=== PATIENT | female | born 2000 | race Caucasian/White ===

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

== ENCOUNTER 2020-10-18 07:25 | Emergency (ER) | payer BC ==
[~2020-10-18] VITALS: Ht 157.4 cm; Wt 45.4 kg
[2020-10-18] MEDS ORDERED: CLINDAMYCIN HC300 MG PO (10:25)
== END 2020-10-18 10:33 | disposition home or self-care (01) ==
LOC: ED 07:25
DX: K02.9 Dental caries, unspecified (principal); F41.9 Anxiety disorder, unspecified; Z88.5 Allergy status to narcotic agent; Z91.030 Bee allergy status; Z90.89 Acquired absence of other organs; Z96.22 Myringotomy tube(s) status

== ENCOUNTER 2021-09-21 11:42 | Emergency (ER) | payer BC ==
[~2021-09-21] VITALS: Ht 157.4 cm; Wt 45.4 kg
[~2021-09-21 11:42] MED LIST changes: +CLINDAMYCIN HC300 MG PO
[2021-09-21 13:43] LABS: BASO % 0.3 % (0.0-1.0); HEMATOCRIT 41.1 % (37.0-47.0); LYMPH # 0.8 10*3/uL (1.3-4.4); LYMPH % 6.8 % (27.0-41.0); MEAN CORPUSCULAR HGB 31.7 pg (27.0-31.0); MEAN CORPUSCULAR HGB CONC 34.1 g/dl (33.0-37.0); MONO # 0.3 10*3/uL (0.1-1.0); MONO % 2.9 % (3.0-9.0); NEUT % 89.7 % (47.0-73.0); PLATELET COUNT AUTOMATED 233 10*3/uL (130-400); RED BLOOD COUNT 4.42 10*6/uL (4.10-5.10); RED CELL DISTRI WIDTH 11.9 % (0-14.5); WHITE BLOOD COUNT 11.2 10*3/uL (4.8-10.8)
[2021-09-21 14:06] LABS: ALKALINE PHOSPHATASE 70 U/L (45-117); BUN 8 mg/dl (7-24); CHLORIDE 115 mmol/L (98-107); CREATININE 0.59 mg/dL (0.55-1.02); LIPASE 102 U/L (73-393); POTASSIUM 3.7 mmol/L (3.5-5.1); SGOT/AST 16 IU/L (3-35); SGPT/ALT 36 U/L (12-78); SODIUM 142 mmol/L (136-145); TOTAL PROTEIN 7.6 gm/dL (6.4-8.2)
[2021-09-21 14:18] LABS: BILIRUBIN Negative (Negative); BLOOD Negative (Negative); CLARITY Clear (Clear); COLOR Yellow (Yellow); GLUCOSE Negative (Negative); KETONE 2+ (Negative); LEUKO ESTERASE 2+ (Negative); NITRITE Negative (Negative); PH 7.5 (4.5-8.0)
[2021-09-21 14:30] LABS: BACTERIA 3+; WBC 21-30 wbc/hpf (0-5)
== END 2021-09-21 16:21 | disposition home or self-care (01) ==
LOC: ED 11:42
PROVIDERS: Physician Assistant
DX: R11.2 Nausea with vomiting, unspecified (principal); Z88.8 Allergy status to other drugs, medicaments and biological substances; Z91.018 Allergy to other foods; Z90.89 Acquired absence of other organs

== ENCOUNTER 2024-05-27 21:01 | Emergency (ER) | payer MEDICAID ==
[~2024-05-27] VITALS: Wt 45.4 kg
[2024-05-27] MEDS ORDERED: Albuterol Sulf/Ipratropium 3 ML VIAL NEB ONE (21:20)
[2024-05-27] MEDS ORDERED: MUCUS RELIEF E600 MG PO (22:47)
[2024-05-27] MEDS ORDERED: MEDROL DOSEPAK4 MG PO (22:47)
== END 2024-05-27 23:02 | disposition home or self-care (01) ==
LOC: ED 21:01
DX: J45.909 Unspecified asthma, uncomplicated (principal); Z20.822 Contact with and (suspected) exposure to COVID-19; Z88.5 Allergy status to narcotic agent; Z91.030 Bee allergy status; Z91.041 Radiographic dye allergy status; Z91.018 Allergy to other foods; Z88.8 Allergy status to other drugs, medicaments and biological substances; Z90.89 Acquired absence of other organs; Z98.890 Other specified postprocedural states